=== PATIENT | female | born 1935 | race Two or more races ===

== ENCOUNTER 2020-01-03 15:13 | Emergency (ER) | payer MEDICARE, OTHER ==
[~2020-01-03] VITALS: Ht 172.7 cm; Wt 90.0 kg
[~2020-01-03 15:13] MED LIST: ASPI-920 PO; ATOR10TA87 PO; CARCD120C PO; CIME800T PO; LEVO125T69 PO; OMEP20TA23 PO; POTA20TA19 PO
[2020-01-03] MEDS ORDERED: morphine 4 MG/ML inj SYRINge IV ONE (15:35)
[2020-01-03] MEDS ORDERED: metoclopramide 5 mg/ml inj IV ONE (15:35)
[2020-01-03] MEDS ORDERED: normal saline 1000ML IV soln IV ONE (15:35)
[2020-01-03 16:04] LABS: BASOPHILS # (AUTO) 0.1 X10'3 (0-0.2); BASOPHILS % (AUTO) 0.7 % (0-1); EOSINOPHILS # (AUTO) 0.2 X10'3 (0-0.9); EOSINOPHILS % (AUTO) 2.1 % (0-6); HEMATOCRIT 43.5 % (35.0-45.0); HEMOGLOBIN 14.6 g/dl (12.0-16.0); LYMPHOCYTES # (AUTO) 2.5 X10'3 (1.1-4.8); LYMPHOCYTES % (AUTO) 35.6 % (21-51); MEAN CORPUSCULAR HEMOGLOBIN 29.5 PG (27.0-31.0); MEAN CORPUSCULAR HGB CONC 33.6 g/dL (33.0-36.5); MEAN CORPUSCULAR VOLUME 87.9 FL (78-98); MEAN PLATELET VOLUME 8.4 FL (7.4-10.4); MONOCYTES # (AUTO) 0.7 X10'3 (0-0.9); NEUTROPHILS # (AUTO) 3.7 X10'3 (1.8-7.7); NEUTROPHILS % (AUTO) 51.6 % (42-75); PLATELET COUNT 189 X10'3 (140-440); RED BLOOD COUNT 4.95 X10'6 (4.20-5.60); RED CELL DISTRIBUTION WIDTH 14.6 % (11.5-14.5); WHITE BLOOD COUNT 7.1 X10'3 (4.5-11.0)
[2020-01-03 16:16] LABS: ALANINE AMINOTRANSFERASE 19 U/L (12-78); ALBUMIN/GLOBULIN RATIO 1.1 (1.1-1.5); ALKALINE PHOSPHATASE 83 IU/L (46-116); ANION GAP 9 (8-16); ASPARTATE AMINO TRANSFERASE 11 U/L (10-37); BILIRUBIN,TOTAL 0.4 MG/DL (0.1-1.0); BLOOD UREA NITROGEN 13 MG/DL (7-18); BUN/CREATININE RATIO 13.3 (6.6-38.0); CHLORIDE 104 MMOL/L (99-107); CREATININE 0.98 MG/DL (0.40-0.90); GLUCOSE 156 MG/DL (70-104); POTASSIUM 3.6 MMOL/L (3.5-5.1); SODIUM 137 MMOL/L (135-145); TOTAL CARBON DIOXIDE 24.1 MMOL/L (24-32); TOTAL PROTEIN 7.5 G/DL (6.4-8.2); eGFR 54 ML/MIN
[2020-01-03 16:36] VITALS: BP 153/76
== END 2020-01-03 17:25 | disposition home or self-care (01) ==
LOC: ER 15:14
DX: K57.92 Diverticulitis of intestine, part unspecified, without perforation or abscess without bleeding (principal); K59.00 Constipation, unspecified; G89.29 Other chronic pain; R10.30 Lower abdominal pain, unspecified; R19.7 Diarrhea, unspecified; E78.00 Pure hypercholesterolemia, unspecified; I10 Essential (primary) hypertension; K21.9 Gastro-esophageal reflux disease without esophagitis; Z90.49 Acquired absence of other specified parts of digestive tract; Z90.710 Acquired absence of both cervix and uterus; Z98.890 Other specified postprocedural states; Z72.89 Other problems related to lifestyle; Z88.2 Allergy status to sulfonamides; Z79.82 Long term (current) use of aspirin; Z79.899 Other long term (current) drug therapy
CPT/HCPCS: 36415; 71045; 74176; 80053; 82948; 83605; 84145; 85025; 87040; 93005; 96361; 96374; 96375; 99285; J2270; J2765; J7030

== ENCOUNTER 2021-05-05 14:29 | Emergency (ER) | payer MEDICARE, OTHER ==
[~2021-05-05] VITALS: Ht 167.6 cm; Wt 95.0 kg
[~2021-05-05 14:29] MED LIST changes: +POTA-207 PO; +POTA-208 PO; -POTA20TA19 PO
[2021-05-05 14:36] VITALS: BP 149/65
== END 2021-05-05 23:37 | disposition left against medical advice (07) ==
LOC: ER 14:30
DX: R22.9 Localized swelling, mass and lump, unspecified (principal); Z53.21 Procedure and treatment not carried out due to patient leaving prior to being seen by health care provider

== ENCOUNTER 2021-05-06 06:35 | Emergency (ER) | payer MEDICARE, OTHER | END 2021-05-06 08:00 | disposition left against medical advice (07) | LOC: ER 06:35 | DX: R60.0 Localized edema (principal); Z53.21 Procedure and treatment not carried out due to patient leaving prior to being seen by health care provider ==

== ENCOUNTER 2022-09-07 19:14 | Emergency (ER) | payer MEDICARE, OTHER ==
[~2022-09-07] VITALS: Ht 167.6 cm; Wt 96.4 kg
[2022-09-07 19:56] VITALS: BP 172/83
[2022-09-07] MEDS ORDERED: dexamethasone sod phosphate 10mg/ml inj PO STA (22:02)
[2022-09-07] MEDS ORDERED: PRED20TA PO (22:04)
[2022-09-08] MEDS ORDERED: iohexol 300mg/ml 100ml inj. ONE (10:53)
== END 2022-09-07 22:21 | disposition home or self-care (01) ==
LOC: ER 19:14
DX: R21 Rash and other nonspecific skin eruption (principal); E78.00 Pure hypercholesterolemia, unspecified; I10 Essential (primary) hypertension; K21.9 Gastro-esophageal reflux disease without esophagitis; Z88.2 Allergy status to sulfonamides; Z90.49 Acquired absence of other specified parts of digestive tract
CPT/HCPCS: 99284; J1100; Q9967

== ENCOUNTER 2023-02-19 13:00 | Day surgery (SDC) | payer MEDICARE, OTHER ==
[2023-02-18 10:36] LABS: BASOPHILS % (AUTO) 0.6 % (0-1); EOSINOPHILS # (AUTO) 0.2 X10'3 (0-0.9); EOSINOPHILS % (AUTO) 4.8 % (0-6); HEMATOCRIT 41.9 % (35.0-45.0); LYMPHOCYTES # (AUTO) 2.1 X10'3 (1.1-4.8); LYMPHOCYTES % (AUTO) 43.5 % (21-51); MEAN CORPUSCULAR HEMOGLOBIN 29.7 PG (27.0-31.0); MEAN CORPUSCULAR HGB CONC 33.5 g/dL (33.0-36.5); MEAN CORPUSCULAR VOLUME 88.5 FL (78-98); MEAN PLATELET VOLUME 7.9 FL (7.4-10.4); MONOCYTES # (AUTO) 0.5 X10'3 (0-0.9); MONOCYTES % (AUTO) 10.1 % (2-12); PLATELET COUNT 193 X10'3 (140-440); RED BLOOD COUNT 4.73 X10'6 (4.20-5.60); RED CELL DISTRIBUTION WIDTH 14.9 % (11.5-14.5); WHITE BLOOD COUNT 4.9 X10'3 (4.5-11.0)
[2023-02-18 10:47] LABS: ALBUMIN 3.7 G/DL (3.4-5.0); ANION GAP 8 (8-16); BLOOD UREA NITROGEN 14 MG/DL (7-18); BUN/CREATININE RATIO 18.7 (10.0-20.0); CALCIUM 8.9 MG/DL (8.5-10.1); CHLORIDE 104 MMOL/L (99-107); CREATININE 0.75 MG/DL (0.40-0.90); GLUCOSE 105 MG/DL (70-104); POTASSIUM 3.8 MMOL/L (3.5-5.1); SODIUM 137 MMOL/L (135-145); TOTAL CARBON DIOXIDE 25.5 MMOL/L (24-32); eGFR 73 ML/MIN
[2023-02-18 10:51] LABS: APTT 27 SECONDS (22-32); PROTHROMBIN TIME 11.2 SECONDS (9.0-12.0)
[2023-02-19] VITALS (14 sets, daily range): BP systolic 99–178; BP diastolic 54–118; PULSE 80–106; RESP 16; TEMP 97.8; O2SAT 89–96
[~2023-02-19] VITALS: Ht 167.6 cm; Wt 96.7 kg
[2023-02-19] MEDS ORDERED: normal saline 1,000 ML IV SCH (13:15)
[2023-02-19] MEDS ORDERED: LORazepam 0.5 MG tablet PO PRN (13:15)
[2023-02-19] MEDS ORDERED: diphenhydrAMINE 25mg capsule PO PRN (13:15)
[2023-02-19] MEDS ORDERED: OMEP20TA23 PO (13:24)
[2023-02-19] MEDS ORDERED: MULT-1249 PO (13:24)
[2023-02-19] MEDS ORDERED: DILT-94 PO (13:24)
[2023-02-19] MEDS ORDERED: LOSA50TA64 PO (13:24)
[2023-02-19] MEDS ORDERED: verapamil 2.5 mg/ml inj IV ONE (14:47)
[2023-02-19] MEDS ORDERED: heparin 1,000unit/ml 10ml vial 10 ML ONE (14:47)
[2023-02-19] MEDS ORDERED: midazolam 1 mg/ML 2ml injection ONE (14:47)
[2023-02-19] MEDS ORDERED: fentaNYL/PF 50MCG/1 ML 2ML syringe ONE (14:47)
[2023-02-19] MEDS ORDERED: LIDOcaine 1% (10mg/ml) 2ml vial ONE (14:47)
[2023-02-19] MEDS ORDERED: iohexol 350MG/ML 100ml bottle IV ONE (14:48)
[2023-02-19] MEDS ORDERED: nitroGLYCERIN 500mcg/5mL D5W 10 ML IV ONE (14:51)
[2023-02-19] MEDS ORDERED: iohexol 350 MG/ML 50ML vial IV ONE (15:24)
[2023-02-19] MEDS ORDERED: LIDOcaine 1% (10mg/ml)w/preservative inj. 20ml MDV ONE (16:14)
[2023-02-19] MEDS ORDERED: hydrALAZINE 20mg/ml inj. IV ONE (16:50)
[2023-02-19] MEDS ORDERED: hydrALAZINE 20mg/ml inj. IV PRN (17:40)
[2023-02-19] MEDS ORDERED: ondansetron/PF 4mg/2ml inj ONE (18:18)
--- NOTE | 2023-02-19 18:20 | NUR ---
pt attempted to void and unable to, f/c placed without difficulty.
--- NOTE | 2023-02-19 19:50 | NUR ---
emptied f/c 1100. ml in bag, removed f/c without any difficulty.
[2023-02-24 08:21] LABS: ISTAT HGB MIX 14.3 g/dl (12.0-16.0); ISTAT Hct MIX 42 %PCV (35-45); ISTAT O2 SATURATION MIX VENOUS 65 % (60-80); ISTAT SOURCE BLNK
[2023-02-24 08:21] LABS: ISTAT HGB ART 14.3 g/dl (12.0-16.0); ISTAT Hct ART 42 %PCV (35-45); ISTAT O2 SATURATION ARTERIAL 96 % (95-98); ISTAT SOURCE BLNK
== END 2023-02-19 20:40 | disposition home or self-care (01) ==
LOC: SSTAY O 13:00
PROVIDERS: ATTEND Internal Medicine Cardiovascular Disease
DX: I08.0 Rheumatic disorders of both mitral and aortic valves (principal); I25.10 Atherosclerotic heart disease of native coronary artery without angina pectoris; I10 Essential (primary) hypertension; E78.5 Hyperlipidemia, unspecified; E03.9 Hypothyroidism, unspecified; K21.9 Gastro-esophageal reflux disease without esophagitis; M41.9 Scoliosis, unspecified; M19.90 Unspecified osteoarthritis, unspecified site; I71.20 Thoracic aortic aneurysm, without rupture, unspecified; Z85.3 Personal history of malignant neoplasm of breast; Z98.890 Other specified postprocedural states; Z90.710 Acquired absence of both cervix and uterus; Z79.899 Other long term (current) drug therapy; Z79.01 Long term (current) use of anticoagulants; Z90.49 Acquired absence of other specified parts of digestive tract; Z88.2 Allergy status to sulfonamides; Z82.49 Family history of ischemic heart disease and other diseases of the circulatory system; Z83.3 Family history of diabetes mellitus
CPT/HCPCS: 36415; 76937; 80048; 82803; 85014; 85025; 85610; 85730; 93005; 93460; 99152; 99153; J0360; J1644; J2250; J2405; J3010; J3490; J7030; Q0163; Q9967; A4314; A4615; A6258; A6402; C1725; C1751; C1769; C1894

== ENCOUNTER 2023-07-11 09:09 | Outpatient (CLI) | payer MEDICARE, OTHER ==
[~2023-07-11 09:09] MED LIST changes: -CARCD120C PO; -CIME800T PO; +DILT-94 PO; +LOSA50TA64 PO; +MULT-1249 PO; -POTA-208 PO
[2023-07-11 09:47] LABS: BASOPHILS % (AUTO) 0.2 % (0-1); EOSINOPHILS % (AUTO) 0 % (0-6); HEMATOCRIT 41.2 % (35.0-45.0); HEMOGLOBIN 13.8 g/dl (12.0-16.0); LYMPHOCYTES # (AUTO) 1.4 X10'3 (1.1-4.8); LYMPHOCYTES % (AUTO) 16.5 % (21-51); MEAN CORPUSCULAR HGB CONC 33.4 g/dL (33.0-36.5); MEAN CORPUSCULAR VOLUME 86.6 FL (78-98); MEAN PLATELET VOLUME 8.1 FL (7.4-10.4); MONOCYTES # (AUTO) 0.7 X10'3 (0-0.9); MONOCYTES % (AUTO) 7.8 % (2-12); NEUTROPHILS # (AUTO) 6.6 X10'3 (1.8-7.7); NEUTROPHILS % (AUTO) 75.5 % (42-75); PLATELET COUNT 192 X10'3 (140-440); RED BLOOD COUNT 4.76 X10'6 (4.20-5.60); RED CELL DISTRIBUTION WIDTH 14.4 % (11.5-14.5); WHITE BLOOD COUNT 8.8 X10'3 (4.5-11.0)
[2023-07-11 09:57] LABS: APTT 25 SECONDS (22-32); INR 1.1 INR; PROTHROMBIN TIME 11.6 SECONDS (9.0-12.0)
[2023-07-11 10:06] LABS: ALANINE AMINOTRANSFERASE 19 U/L (12-78); ALBUMIN 3.6 G/DL (3.4-5.0); ALBUMIN/GLOBULIN RATIO 0.9 (1.1-1.5); ALKALINE PHOSPHATASE 90 IU/L (46-116); ANION GAP 10 (8-16); ASPARTATE AMINO TRANSFERASE 8 U/L (10-37); BILIRUBIN,TOTAL 0.6 MG/DL (0.1-1.0); BLOOD UREA NITROGEN 19 MG/DL (7-18); BUN/CREATININE RATIO 20.4 (10.0-20.0); CALCIUM 9.8 MG/DL (8.5-10.1); CHLORIDE 104 MMOL/L (99-107); CREATININE 0.93 MG/DL (0.40-0.90); GLUCOSE 194 MG/DL (70-104); POTASSIUM 3.6 MMOL/L (3.5-5.1); PRO BRAIN NATRIURETIC PEPTIDE 543 PG/ML (0-450); SODIUM 139 MMOL/L (135-145); TOTAL CARBON DIOXIDE 24.7 MMOL/L (24-32); TOTAL PROTEIN 7.7 G/DL (6.4-8.2); eGFR 57 ML/MIN
[2023-07-11] MEDS ORDERED: IODIXANOL 320 MG/ML INFUS..BTL 100ML IV ONE (10:43)
== END 2023-07-11 23:59 | disposition home or self-care (01) ==
LOC: RAD 09:09
PROVIDERS: ATTEND Internal Medicine Cardiovascular Disease
DX: Z01.818 Encounter for other preprocedural examination (principal); I65.23 Occlusion and stenosis of bilateral carotid arteries; I35.0 Nonrheumatic aortic (valve) stenosis; R06.02 Shortness of breath; M47.817 Spondylosis without myelopathy or radiculopathy, lumbosacral region; K57.30 Diverticulosis of large intestine without perforation or abscess without bleeding; M41.85 Other forms of scoliosis, thoracolumbar region; Z90.49 Acquired absence of other specified parts of digestive tract; Z90.6 Acquired absence of other parts of urinary tract
CPT/HCPCS: 36415; 71046; 71275; 74174; 75572; 80053; 83880; 85025; 85610; 85730; 93880; J3490; Q9967

== ENCOUNTER 2024-02-07 18:57 | Emergency (ER) | payer MEDICARE, OTHER ==
[~2024-02-07] VITALS: Ht 157.5 cm; Wt 100.0 kg
[~2024-02-07 18:57] MED LIST changes: +CYAN-104 PO; -MULT-1249 PO
[2024-02-07 19:32] LABS: BASOPHILS % (AUTO) 0.7 % (0-1); EOSINOPHILS # (AUTO) 0.2 X10'3 (0-0.9); EOSINOPHILS % (AUTO) 3.3 % (0-6); HEMATOCRIT 41.2 % (35.0-45.0); HEMOGLOBIN 13.8 g/dl (12.0-16.0); LYMPHOCYTES % (AUTO) 36.2 % (21-51); MEAN CORPUSCULAR HGB CONC 33.5 g/dL (33.0-36.5); MEAN CORPUSCULAR VOLUME 86.4 FL (78-98); MEAN PLATELET VOLUME 8.2 FL (7.4-10.4); MONOCYTES # (AUTO) 0.5 X10'3 (0-0.9); MONOCYTES % (AUTO) 9.3 % (2-12); NEUTROPHILS # (AUTO) 2.8 X10'3 (1.8-7.7); NEUTROPHILS % (AUTO) 50.5 % (42-75); PLATELET COUNT 172 X10'3 (140-440); RED BLOOD COUNT 4.76 X10'6 (4.20-5.60); RED CELL DISTRIBUTION WIDTH 14.5 % (11.5-14.5); WHITE BLOOD COUNT 5.5 X10'3 (4.5-11.0)
[2024-02-07 19:39] LABS: ALANINE AMINOTRANSFERASE 14 U/L (12-78); ALBUMIN 3.9 G/DL (3.4-5.0); ALKALINE PHOSPHATASE 86 IU/L (46-116); ANION GAP 8 (8-16); ASPARTATE AMINO TRANSFERASE 13 U/L (10-37); BILIRUBIN,TOTAL 0.6 MG/DL (0.1-1.0); BLOOD UREA NITROGEN 17 MG/DL (7-18); BUN/CREATININE RATIO 18.9 (10.0-20.0); CALCIUM 9.3 MG/DL (8.5-10.1); CHLORIDE 106 MMOL/L (99-107); GLUCOSE 134 MG/DL (70-104); POTASSIUM 4.2 MMOL/L (3.5-5.1); SODIUM 140 MMOL/L (135-145); TOTAL CARBON DIOXIDE 26.4 MMOL/L (24-32); TOTAL PROTEIN 7.8 G/DL (6.4-8.2); eCRCL 34 ML/MIN; eGFR 59 ML/MIN
[2024-02-07 19:46] LABS: PRO BRAIN NATRIURETIC PEPTIDE 1668 PG/ML (0-450)
[2024-02-07 21:09] LABS: BILIRUBIN,URINE NEGATIVE (Neg); CLARITY,URINE CLEAR (Clear); COLOR,URINE YELLOW (Yellow); GLUCOSE, URINE NEGATIVE (Neg); KETONES,URINE NEGATIVE (Neg); LEUKOCYTE ESTERASE ,URINE NEGATIVE (Neg); NITRITES, URINE NEGATIVE (Neg); OCCULT BLOOD,URINE NEGATIVE (Neg); PH,URINE 6.5 (4.8-8.0); PROTEIN,URINE NEGATIVE (Neg); UROBILINOGEN,URINE 0.2 E.U/dL (0.2-1.0)
[2024-02-07 21:18] LABS: UA COLLECTION TYPE CLN CATCH MIDSTREAM
[2024-02-07 21:38] VITALS: BP 118/85; PULSE 97; RESP 19; TEMP 97.1; O2SAT 100
== END 2024-02-07 21:38 | disposition home or self-care (01) ==
LOC: ER 18:58
DX: Z88.2 Allergy status to sulfonamides (principal); Z88.0 Allergy status to penicillin; Z79.899 Other long term (current) drug therapy; E78.00 Pure hypercholesterolemia, unspecified; G89.29 Other chronic pain; I10 Essential (primary) hypertension; K21.9 Gastro-esophageal reflux disease without esophagitis; Z85.3 Personal history of malignant neoplasm of breast; Z90.49 Acquired absence of other specified parts of digestive tract; Z90.710 Acquired absence of both cervix and uterus; Z87.440 Personal history of urinary (tract) infections; R00.2 Palpitations; E86.0 Dehydration
CPT/HCPCS: 36415; 71045; 80053; 81003; 83880; 84484; 85025; 93005; 99285

== ENCOUNTER 2024-07-24 08:12 | Emergency (ER) | payer MEDICARE, OTHER ==
[~2024-07-24] VITALS: Ht 170.2 cm; Wt 92.5 kg
[2024-07-24 09:02] LABS: BASOPHILS % (AUTO) 0.8 % (0-1); EOSINOPHILS # (AUTO) 0.2 X10'3 (0-0.9); EOSINOPHILS % (AUTO) 3.1 % (0-6); HEMATOCRIT 33.7 % (35.0-45.0); HEMOGLOBIN 10.9 g/dl (12.0-16.0); LYMPHOCYTES # (AUTO) 1.8 X10'3 (1.1-4.8); LYMPHOCYTES % (AUTO) 33.9 % (21-51); MEAN CORPUSCULAR HEMOGLOBIN 24.6 PG (27.0-31.0); MEAN CORPUSCULAR HGB CONC 32.4 g/dL (33.0-36.5); MEAN PLATELET VOLUME 7.7 FL (7.4-10.4); MONOCYTES # (AUTO) 0.5 X10'3 (0-0.9); MONOCYTES % (AUTO) 10.4 % (2-12); NEUTROPHILS # (AUTO) 2.7 X10'3 (1.8-7.7); NEUTROPHILS % (AUTO) 51.8 % (42-75); PLATELET COUNT 205 X10'3 (140-440); RED BLOOD COUNT 4.43 X10'6 (4.20-5.60); RED CELL DISTRIBUTION WIDTH 15.7 % (11.5-14.5); WHITE BLOOD COUNT 5.2 X10'3 (4.5-11.0)
--- NOTE | 2024-07-24 09:03 | ELECTROCARDIOGRAPH REPORT ---
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 Jose Alberto Jorge Measurements Intervals [place] Rate: 81 P: 33 [place]: 200 QRS: -55 QRSD: 99 T: 67 QT: 396 QTc: 460 Interpretive Statements Sinus rhythm Ventricular premature complex LVH with secondary repolarization abnormality Inferior infarct, old Electronically Signed On 07-24-2024 18:45:[address] Jose Alberto Jorge Please click the below link to view image of tracing.
[2024-07-24 09:12] LABS: ALANINE AMINOTRANSFERASE 18 U/L (12-78); ALBUMIN 3.7 G/DL (3.4-5.0); ALBUMIN/GLOBULIN RATIO 1.1 (1.1-1.5); ALKALINE PHOSPHATASE 72 IU/L (46-116); ANION GAP 7 (8-16); ASPARTATE AMINO TRANSFERASE 15 U/L (10-37); BILIRUBIN,TOTAL 0.7 MG/DL (0.1-1.0); BLOOD UREA NITROGEN 11 MG/DL (7-18); BUN/CREATININE RATIO 14.3 (10.0-20.0); CALCIUM 9.1 MG/DL (8.5-10.1); CHLORIDE 104 MMOL/L (99-107); CREATININE 0.77 MG/DL (0.40-0.90); GLUCOSE 136 MG/DL (70-104); LIPASE 14 U/L (16-77); SODIUM 139 MMOL/L (135-145); eCRCL 48 ML/MIN; eGFR 71 ML/MIN
--- NOTE | 2024-07-24 09:40 | Physician Documentation ---
History of Present Illness ~ Chief Complaint: Abdominal Pain Stated Complaint: N/V Time Seen by MD: 08:35 Primary Medical Doctor: Dr. Mendez Mode of Arrival: POV [facility] 89-year-old female patient with a history of hypertension, hyperlipidemia, hypothyroidism, scoliosis, left breast carcinoma that was treated with surgery and radiation no chemo and a status post TAVR done in 2023 came to the emergency room with her daughter because she was told that her blood count has been dropping and the last Friday they stopped all her anticoagulation and aspirin. She felt a little nauseated. She says she has been pretty active and taking care of her who has diabetes. She says she has felt little more easier to get tired than before. Denies any black stool, bloody stool as well as vomiting of blood. Medication Reconciliation Allergies: Coded Allergies: Sulfa (Sulfonamide Antibiotics) (Unverified Allergy, Unknown, RASH, 09/07/22) amoxicillin (Verified Allergy, Unknown, RASH, 09/03/23) Scheduled Aspirin (Aspirin Chewable), 81 MG PO DAILY, (Reported) Atorvastatin Calcium* (Lipitor*), 10 MG PO HS, (Reported) Cyanocobalamin (Vitamin B-12), 1 TAB PO DAILY, (Reported) Diltiazem HCl (Diltiazem 24Hr ER), 1 CAP PO QPM, (Reported) Levothyroxine Sodium* (Levoxyl*), 125 MCG PO DAILY, (Reported) Losartan Potassium (Losartan Potassium), 1 TAB PO DAILY, (Reported) Omeprazole Magnesium (Prilosec Otc), 1 TAB PO BID, (Reported) Potassium Chloride* (K-Dur*), 1 TABLET PO QPM, (Reported) Past Medical History Past Medical History: High Cholesterol, Hypertension, Valve Insuffciency, , GERD, UTI, Chronic Back Pain, Breast Cancer Past Surgical History: cholecystectomy, , hysterectomy, orthopedic surgeries, other Alcohol Use: Occasionally Drug Use: none Lives with: Spouse Lives In: Home Occupation: retired Review of Systems ROS As stated above in the HPI, otherwise all systems are reviewed and negative. Physical Exam Vital Signs: Temperature: 98.2, Heart Rate: 89, Respiratory Rate: 16, BP: 153/69, Pulse Oximetry: 93, Weight: 92.500 Physical Exam Reviewed vital signs and they are well within normal range. Const: Patient is not in acute cardiopulmonary distress Head: Atraumatic Eyes: Normal Conjunctiva ENT: Normal External Ears, Nose and Mouth. Moist mucous membranes Neck: Full range of motion. No meningismus Resp: Clear to auscultation bilaterally. Normal work of breathing Cardio: Regular rate and rhythm, no murmurs. Skin well perfused Abd: Soft, non-tender, non-distended. Normal bowel sounds. No rebound or guard ing Skin: No petechiae or rashes. Warm and dry Back: No midline or flank tenderness Ext: No cyanosis, or edema Neuro: Awake and alert Psych: Normal Mood and Affect Progress Results/Orders Results/Orders Orders - NIC ELLIOTT MD Hs Troponin I W Calculations (07/24/24 11:39) Ct Abdomen Pelvis (07/24/24 10:21) Cult Urine + [place] [facility] (07/24/24 11:09) Completed Orders - NIC ELLIOTT MD Electrocardiogram (07/24/24 08:39) Hs Troponin I W Calculations (07/24/24 08:39) Hs Troponin I W Calculations (07/24/24 10:39) Cbc/Diff (07/24/24 08:39) Lipase (07/24/24 08:39) CMP (07/24/24 08:39) Ferritin (07/24/24 09:50) Iron/Tibc (07/24/24 09:50) Metoclopramide Inj (Reglan Inj) (07/24/24 10:05) Ct Abdomen Pelvis (07/24/24 10:21) Ua W/Microscopic, Cult If Ind (07/24/24 09:20) Medications Received in ER Medications (Trade) Dose Ordered Sig/Jake Route PRN Reason Start Time Stop Time Status Last Admin Dose Admin (Reglan inj) 10 mg ONCE ONCE IV 07/24/24 10:05 07/24/24 10:06 DC 07/24/24 10:29 10 MG Vital Signs 07/24/24 07/24/24 08:27 08:45 Temp 98.2 Pulse 89 Resp 16 16 B/P (MAP) 153/69 Pulse Ox 93 Laboratory Tests Test 07/24/24 08:49 07/24/24 09:20 07/24/24 10:35 07/24/24 10:36 White Blood Count 5.2 Red Blood Count 4.43 Hemoglobin 10.9 L Hematocrit 33.7 L Mean Corpuscular Volume 76.0 L Mean Corpuscular Hemoglobin 24.6 L Mean Corpuscular Hemoglobin Concent 32.4 L Red Cell Distribution Width 15.7 H Platelet Count 205 Mean Platelet Volume 7.7 Neutrophils (%) (Auto) 51.8 Lymphocytes (%) (Auto) 33.9 Monocytes (%) (Auto) 10.4 Eosinophils (%) (Auto) 3.1 Basophils (%) (Auto) 0.8 Neutrophils # (Auto) 2.7 Lymphocytes # (Auto) 1.8 Monocytes # (Auto) 0.5 Eosinophils # (Auto) 0.2 Basophils # (Auto) 0.0 CBC Comment Sodium Level 139 Potassium Level 4.0 Chloride Level 104 Carbon Dioxide Level 28.0 Anion Gap 7 L Blood Urea Nitrogen 11 Creatinine 0.77 Estimated GFR/1.73 m2 71 BUN/Creatinine Ratio 14.3 Glucose Level 136 H Calcium Level 9.1 Total Bilirubin 0.7 Aspartate Amino Transf (AST/SGOT) 15 Alanine Aminotransferase (ALT/SGPT) 18 Alkaline Phosphatase 72 Troponin I High Sensitivity 13 12 Total Protein 7.0 Albumin 3.7 Globulin 3.3 Albumin/Globulin Ratio 1.1 Lipase 14 L Chemistry Comments Urine Specimen Description Other Urine Color Yellow Urine Clarity Cloudy Urine pH 6.0 Urine Specific [place] 1.020 Urine Protein Negative Urine Glucose (UA) Negative Urine Ketones Negative Urine Occult Blood Negative Urine Nitrite Negative Urine Bilirubin Negative Urine Urobilinogen 0.2 Urine Leukocyte Esterase Moderate H Urine RBC None seen Urine WBC 50-100 H Urine WBC Clumps Moderate Urine Squamous Epithelial Cells Few Urine Transitional Epithelial Cells Few Urine Bacteria 4+ Urine Mucus None seen Urine Culture Indicated Indicated Volume Urine Centrifuged 10 ml Urine Comment Troponin I High Sens Percent Delta 7 Troponin I Hi Sens Absolute Change -1 Iron Level 22 L Total Iron Binding Capacity 376 Percent Iron Saturation 6 L Ferritin 9 Medical Decision Making Findings During the physical examination, the findings suggestive of acute life- threatening condition such as JVD, tracheal deviation, acidotic breathing, noisy stridorous breath sounds, pulses paradoxus, muffled heart sounds, unequal breath sounds, abdominal rigidity and rebound tenderness, focal neurological deficits, cool clammy skin, severe hypotension, severe tachycardia or bradycardia are absent. Patient is concerned about the drop in hemoglobin after TAVR procedure. Her CBC shows hypochromic microcytic anemia (WBC 5.2 H and H10.9 and 33.7 and platelets 205) and sodium 139 potassium four chloride 104 bicarb 28 BUN 11 creatinine 0.77 and glucose 136. Troponin is 13. CT scan of the abdomen and pelvis without contrast resulted and impression is IMPRESSION: 1. Small esophageal hiatal hernia. 2. Hepatomegaly with fatty infiltration. 3. Fecal retention in the colon consistent with constipation. 4. Colonic diverticulosis without acute diverticulitis. 5. Degenerative changes lumbar spine as described. The patient's UA shows urinary tract infection and she will get medication prior to discharge. Departure Disposition: HOME / SELF CARE / HOMELESS Impression: Primary Impression: Acute urinary tract infection Referrals: NO PRIMARY CARE PROVIDER (PCP) NIC ELLIOTT MD July 24, 2024 09:40
[2024-07-24] MEDS: metoclopramide 5 mg/ml inj IV ONE (10:29)
--- NOTE | 2024-07-24 10:37 | RADIOLOGY REPORT ---
EXAM: CT Abdomen and Pelvis Without Intravenous Contrast CLINICAL INDICATION: pain TECHNIQUE: Axial computed tomography images of the abdomen and pelvis without intravenous contrast. This CT exam was performed using one or more of the following dose reduction techniques: automated exposure control, adjustment of the mA and/or kV according to patient size, and/or use of iterative r econstruction technique. CONTRAST: COMPARISON: CT ABDOMEN PELVIS on DOS: 01/03/20 FINDINGS: LUNG BASES: Unremarkable. No mass. No consolidation. MEDIASTINUM: Small esophageal hiatal hernia. ABDOMEN: LIVER: Hepatomegaly with fatty infiltration. GALLBLADDER AND BILE DUCTS: Gallbladder is surgically absent. No ductal dilation. PANCREAS: Unremarkable. No ductal dilation. SPLEEN: Unremarkable. No splenomegaly. ADRENALS: Unremarkable. No mass. KIDNEYS AND URETERS: Unremarkable. No obstructing stones. No hydronephrosis. STOMACH AND BOWEL: Fecal retention in the colon consistent with constipation. Colonic diverticulos is without acute diverticulitis. No obstruction. PELVIS: APPENDIX: No findings to suggest acute appendicitis. BLADDER: Unremarkable. No stones. REPRODUCTIVE: Unremarkable as visualized. ABDOMEN and PELVIS: INTRAPERITONEAL SPACE: Unremarkable. No free air. No significant fluid collection. BONES/JOINTS: Degenerative disc disease throughout the lumbar spine. Degenerative facet arthropath y throughout the lumbar spine, most prominent in the lower lumbar spine. No acute fracture. No disl ocation. SOFT TISSUES: Unremarkable. VASCULATURE: Scattered calcified atherosclerotic disease of aorta. No abdominal aortic aneurysm. LYMPH NODES: Unremarkable. No enlarged lymph nodes. OTHER FINDINGS: . . IMPRESSION: 1. Small esophageal hiatal hernia. 2. Hepatomegaly with fatty infiltration. 3. Fecal retention in the colon consistent with constipation. 4. Colonic diverticulosis without acute diverticulitis. 5. Degenerative changes lumbar spine as described.
[2024-07-24 10:56] LABS: BILIRUBIN,URINE NEGATIVE (Neg); CLARITY,URINE CLOUDY (Clear); COLOR,URINE YELLOW (Yellow); GLUCOSE, URINE NEGATIVE (Neg); KETONES,URINE NEGATIVE (Neg); LEUKOCYTE ESTERASE ,URINE MODERATE (Neg); NITRITES, URINE NEGATIVE (Neg); OCCULT BLOOD,URINE NEGATIVE (Neg); PROTEIN,URINE NEGATIVE (Neg); UROBILINOGEN,URINE 0.2 E.U/dL (0.2-1.0)
[2024-07-24 10:57] LABS: UA COLLECTION TYPE OTHER
[2024-07-24 11:02] LABS: % IRON SATURATION 6 % (11-46); IRON 22 UG/DL (49-151); TOTAL IRON BINDING CAPACITY 376 UG/DL (259-388)
[2024-07-24 11:09] LABS: BACTERIA,URINE 4+ /HPF (Neg); MUCUS STRANDS NONE SEEN /LPF (Neg); RBC,URINE NONE SEEN /HPF (0-2); SQUAMOUS EPITHELIAL CELL,UR FEW /LPF (FEW); TRANSITIONAL EPI CELLS,URINE FEW /HPF; WBC CLUMPS,URINE MODERATE /HPF (NEGATIVE); WBC,URINE 50-100 /HPF (0-4)
[2024-07-24 11:13] LABS: FERRITIN 9 NG/ML (8-252)
[2024-07-24] MEDS ORDERED: CIPR250T4 PO (12:01)
[2024-07-24] MEDS ORDERED: LACT-373 PO (12:01)
[2024-07-24] MEDS ORDERED: IRON1TAB97 PO (12:01)
[2024-07-24] MEDS: CefTRIAXone/D5W-Rocephin 1gm 50 ML IV ONE (12:04)
[2024-07-24 12:36] VITALS: BP 138/70; PULSE 76; RESP 16; TEMP 98.1; O2SAT 96
== END 2024-07-24 12:40 | disposition home or self-care (01) ==
LOC: ER 08:13
DX: N39.0 Urinary tract infection, site not specified (principal); D50.9 Iron deficiency anemia, unspecified; E03.9 Hypothyroidism, unspecified; E78.00 Pure hypercholesterolemia, unspecified; I10 Essential (primary) hypertension; Z85.3 Personal history of malignant neoplasm of breast; Z88.0 Allergy status to penicillin; Z88.2 Allergy status to sulfonamides; Z90.49 Acquired absence of other specified parts of digestive tract; Z90.710 Acquired absence of both cervix and uterus
CPT/HCPCS: 36415; 74176; 80053; 81001; 82728; 83540; 83550; 83690; 84484; 85025; 87088; 93005; 96365; 96375; 99285; J0696; J2765

== ENCOUNTER 2024-11-21 16:49 | Emergency (ER) | payer MEDICARE, OTHER ==
[~2024-11-21] VITALS: Ht 165.1 cm; Wt 84.1 kg
[~2024-11-21 16:49] MED LIST changes: +APIX5TAB3 PO; -ASPI-920 PO; +DICY20TA17 PO; +LEVO100C5 PO; -LEVO125T69 PO; -OMEP20TA23 PO; +ONDA-243 PO; +PANT40TA54 PO; +SIME125C PO; +SOTA80TA73 PO
[2024-11-21 16:53] VITALS: TEMP 97.2
--- NOTE | 2024-11-21 17:09 | ELECTROCARDIOGRAPH REPORT ---
[facility] Test Date: 2024-11-21 Test Time: 17:06:36 Pat Name: CIRILO VIVEROS Department: [facility] Patient ID: [facility]-[id number] Room: Gender: F Hris Specialist: : 1935 Requested By: CYNDIE ORTIZ Order Number: [id number] Reading MD: Measurements Intervals [place] Rate: 77 P: 0 [place]: 0 QRS: -51 QRSD: 104 T: 47 QT: 420 QTc: 476 Interpretive Statements Atrial fibrillation LVH with secondary repolarization abnormality Inferior infarct, old Anterior Q waves, possibly due to LVH Baseline wander in lead(s) V2 Please click the below link to view image of tracing.
[2024-11-21 17:27] VITALS: BP 155/79; PULSE 77; O2SAT 96
--- NOTE | 2024-11-21 17:27 | RADIOLOGY REPORT ---
EXAM: DI CHEST,SINGLE VIEW HISTORY: CP TECHNIQUE: 1 view of the chest COMPARISON: DI CHEST,SINGLE VIEW on DOS: 10/05/24 FINDINGS/IMPRESSION: LUNGS: No pleural effusion, consolidation, or pneumothorax MEDIASTINUM: Aortic valvular replacement. Normal cardiac size BONES: No acute osseous abnormality OTHER: Postsurgical changes along the left lateral chest wall
[2024-11-21 17:34] VITALS: RESP 19
--- NOTE | 2024-11-21 17:39 | Physician Documentation ---
History of Present Illness ~ Chief Complaint: Palpitations Stated Complaint: HIGH BP Time Seen by MD: 17:33 Primary Medical Doctor: Dr. Espinoza HPI Patient is a 89-year-old female that reports to the emergency department for evaluation of blood pressure with systolics in the 170s. Patient is here in the emergency department with her daughters who are her primary caretakers today. Patient reports that she takes her blood pressure multiple times a day at home she was concerned when her blood pressure monitor said 170s since being here in the emergency department her blood pressure has spontaneously resolved patient would like to leave she feels comfortable she has no other complaints today. Patient reports that she takes losartan for her hypertension, and she takes blood thinners for her AFib. She reports that they will follow up with her primary care provider on Friday morning. Daughters also report that they would like to leave as they have no concerns about her blood pressure or any other symptoms at this time. Medication Reconciliation Allergies: Coded Allergies: Sulfa (Sulfonamide Antibiotics) (Unverified Allergy, Unknown, RASH, 11/21/24) amoxicillin (Verified Allergy, Unknown, RASH, 11/21/24) PT TOLERATED ANC 07/2014 Scheduled Apixaban (Eliquis), 1 TAB PO BID, (Reported) Atorvastatin Calcium* (Lipitor*), 20 MG PO HS, (Reported) Cyanocobalamin (Vitamin B-12), 0.5 TAB PO DAILY, (Reported) Dicyclomine HCl (Dicyclomine HCl), 1 TAB PO Q12H Diltiazem HCl (Diltiazem 24Hr ER), 1 CAP PO QPM, (Reported) Levothyroxine Sodium (Levothyroxine), 1 CAP PO DAILY, (Reported) Losartan Potassium (Losartan Potassium), 1 TAB PO DAILY, (Reported) Pantoprazole Sodium (Pantoprazole Sodium), 40 MG PO BID Potassium Chloride* (K-Dur*), 1 TABLET PO QPM, (Reported) Simethicone (Mylanta), 1 CAP PO Q12H Sotalol Hcl* (Betapace*), 1 TAB PO BID, (Reported) Scheduled PRN ONDANSETRON ODT 4mg tablet (Ondansetron Odt), 1 TAB PO DAILY PRN for nausea/vomiting, (Reported) Past Medical History Past Medical History: High Cholesterol, Hypertension, Valve Insuffciency, ----- , GERD, UTI, Chronic Back Pain, Breast Cancer Past Surgical History: cholecystectomy, , hysterectomy, orthopedic surgeries, other Alcohol Use: Occasionally Drug Use: none Lives with: Spouse Lives In: Home Occupation: retired Review of Systems ROS As stated above in the HPI, otherwise all systems are reviewed and negative. Physical Exam Vital Signs: Temperature: 97.2, Source: Temporal, Heart Rate: 77, Respiratory Rate: 19, BP: 155/79, Pulse Oximetry: 96, Weight: 84.090 Oxygen Flow Rate: 0 Physical Exam VITALS: Reviewed and as above. GENERAL: Alert, no apparent distress. HEENT: Normocephalic, atraumatic, PERRL, EOMI, dry mucosa, no erythema RESPIRATORY: Lungs clear, normal breath sounds, no respiratory distress. CHEST: No accessory muscle use, no retractions CV: Regular rate, rhythm, no edema, no murmur, No: JVD, mildly hypertensive. GI: Soft, non-tender, bowels sounds present, no rebound, guarding, or rigidity BACK: No CVA tenderness, or swelling MUSCULOSKELETAL No deformities, no edema SKIN: Warm and dry, no rash NEURO: Oriented x4, No motor or sensory deficit PSYCH: Normal mood and affect, no agitation Progress Results/Orders Results/Orders Vital Signs 11/21/24 11/21/24 16:53 17:27 Temp 97.2 Pulse 79 77 Resp 19 19 B/P (MAP) 172/69 155/79 (104) Pulse Ox 95 96 O2 Flow Rate 0 Medical Decision Making Findings Patient presents to the emergency department complaining of high blood pressure. Patient is otherwise asymptomatic without confusion, chest pain, dysuria, vision changes, focal neurological deficit or SOB. Patient is hypertensive here. Patient has concerning hypertension has spontaneously resolved since being here in the emergency department. She reports that she has been taking her antihypertensives but we will follow up with her primary care provider for an adjustment to her medication. Doubt hypertenstive emergency, patient with no signs of AMS, pulmonary edema, heart failure, ACS, PRESS syndrome, intracranial hemorrhage, renal infarction or failure or other end organ damage. Plan to discharge patient home with PMD follow up. Patient will return to the emergency department with any worsening or recurrent symptoms or any additional concerning symptoms that we discussed here today shortness of breath chest pain li ghtheadedness dizziness headache or any other concerning symptoms. Differential Dx:Considerations: Include: angina / KS, atrial dysrhythmia, atrial fibrillation, atrial flutter, MAT, PACs, PSVT, sinus tachycardia, WPW, 1st degree AV block, 2nd degree AVB-type 1, 2nd degree AVB-type 2, 3rd degree AV block, PVCs, torsades de pointes, ventricular fibrillation, ventricular tachycardia, other Differential Dx:Considerations: Include anxiety/panic attack, Include digoxin toxicity, Include electrolyte disorder, Include heart failure, Include hyperthyroidism, Include hyperventilation, Include hypoxia, Include pacemaker malfunction, Include pulmonary embolus, Include renal failure, Include other Departure Disposition: 01 HOME / SELF CARE / HOMELESS Impression: Primary Impression: High blood pressure Condition: Stable Discharge Instructions: Atrial Fibrillation, Nasr-wr-Madt, Hypertension, Adult, [id number] Additional Instructions: Patient presents to the emergency department complaining of high blood pressure. Patient is otherwise asymptomatic without confusion, chest pain, dysuria, vision changes, focal neurological deficit or SOB. Patient is hypertensive here. Patient has concerning hypertension has spontaneously resolved since being here in the emergency department. She reports that she has been taking her antihypertensives but we will follow up with her primary care provider for an adjustment to her medication. Doubt hypertenstive emergency, patient with no signs of AMS, pulmonary edema, heart failure, ACS, PRESS syndrome, intracranial hemorrhage, renal infarction or failure or other end organ damage. Plan to discharge patient home with PMD follow up. Patient will return to the emergency department with any worsening or recurrent symptoms or any additional concerning symptoms that we discussed here today shortness of breath chest pain lightheadedness dizziness headache or any other concerning symptoms. Referrals: NO PRIMARY CARE PROVIDER (PCP) Education Educated: Patient Educated regarding: diagnosis, treatment, need for follow up Signature Scribe Signature: A Attestation: Scribed for Emergency,Department by LAUREN Sanford . 11/21/24 17:39 MATT ALLEN Nov 21, 2024 17:39
== END 2024-11-21 18:12 | disposition home or self-care (01) ==
LOC: ER 16:50
DX: I10 Essential (primary) hypertension (principal); E78.00 Pure hypercholesterolemia, unspecified; I48.91 Unspecified atrial fibrillation; K21.9 Gastro-esophageal reflux disease without esophagitis; Z85.3 Personal history of malignant neoplasm of breast; Z88.0 Allergy status to penicillin; Z88.1 Allergy status to other antibiotic agents; Z88.2 Allergy status to sulfonamides; Z90.49 Acquired absence of other specified parts of digestive tract; Z90.710 Acquired absence of both cervix and uterus
CPT/HCPCS: 71045; 93005; 99283